=== PATIENT | female | born 1940 | race Two or more races ===

== ENCOUNTER 2017-05-18 23:44 | Emergency (ER) | payer MEDICARE, MEDICAID ==
[~2017-05-18] VITALS: Ht 157.5 cm; Wt 81.6 kg
[~2017-05-18 23:44] MED LIST: DICL75TA PO; HYDR25TA4 PO; METF500T4 PO; SAXA5TAB PO
[2017-05-19] MEDS: CLONIDINE HCL 0.1 MG TABLET PO ONE (00:51)
[2017-05-19] MEDS: OXYCODONE/APAP 5-325 MG TABLET PO ONE (00:52)
[2017-05-19] MEDS: ONDANSETRON ODT 4 MG TAB.RAPDIS SL ONE (00:52)
[2017-05-19] MEDS: ACETAMINOPHEN ES 500 MG TABLET PO ONE (00:52)
[2017-05-19] MEDS ORDERED: CLONIDINE HCL 0.1 MG TABLET ONE (01:01)
[2017-05-19] MEDS ORDERED: OXYCODONE/APAP 5-325 MG TABLET ONE (01:02)
[2017-05-19] MEDS ORDERED: ACETAMINOPHEN ES 500 MG TABLET ONE (01:02)
[2017-05-19] MEDS ORDERED: ONDANSETRON ODT 4 MG TAB.RAPDIS ONE (01:02)
--- NOTE | 2017-05-19 01:51 | NUR ---
Patient discharged to home in stable conditon. Written and verbal after care instructions given. Patient verbalizes understanding of instructions. Ambulated from ER with stable gait. All belongings with patient. Patient will be driven home by son in private vehicle. Patient aware not to drive or operate heavy machinery due to recent narcotic intake.
[2017-05-19 01:54] VITALS: BP 130/64
== END 2017-05-19 01:54 | disposition home or self-care (01) ==
LOC: ER 23:45
DX: R51 Headache (principal); I10 Essential (primary) hypertension; Z79.899 Other long term (current) drug therapy; E11.9 Type 2 diabetes mellitus without complications
CPT/HCPCS: 70450; A4663; Q0162

== ENCOUNTER 2019-06-26 22:12 | Inpatient (IN) | payer MEDICARE, MEDICAID ==
[~2019-06-26] VITALS: Ht 165.1 cm; Wt 82.2 kg
[~2019-06-26 22:12] MED LIST changes: +METF-440 PO; -METF500T4 PO
[2019-06-26] MEDS ORDERED: SAXA5TAB PO (22:46)
[2019-06-26] MEDS ORDERED: TIMO5SOL11 EACHEYE (22:46)
[2019-06-26] MEDS ORDERED: LATA2.5D7 EACHEYE (22:46)
[2019-06-26] MEDS ORDERED: TRAV5DRO EACHEYE (22:46)
[2019-06-26] MEDS ORDERED: HYDR25TA4 PO (22:46)
[2019-06-26] MEDS ORDERED: ONDANSETRON 4 MG/2 ML VIAL IV ONE (23:30)
[2019-06-26] MEDS ORDERED: IV NORMAL SALINE 1000 ML BAG IV ONE (23:30)
[2019-06-26] MEDS ORDERED: ONDANSETRON 4 MG/2 ML VIAL ONE (23:41)
[2019-06-26 23:52] LABS: BASOPHILS % (AUTO) 0.6 % (0.0-2.0); EOSINOPHILS % (AUTO) 0.8 % (0.0-7.0); HEMATOCRIT 37.1 % (31.2-41.9); HEMOGLOBIN 12.7 g/dL (10.9-14.3); LYMPHOCYTES # (AUTO) 2.6 K/uL (20.0-40.0); LYMPHOCYTES % (AUTO) 48.2 % (20.5-51.5); MEAN CORPUSCULAR HGB CONC 34 g/dL (32.3-35.6); MONOCYTES # (AUTO) 0.5 K/uL (2.0-10.0); MONOCYTES % (AUTO) 9.1 % (0.0-11.0); NEUTROPHILS # (AUTO) 2.2 K/uL (1.8-8.9); NEUTROPHILS % (AUTO) 41.3 % (38.5-71.5); PLATELET COUNT (AUTO) 216 K/uL (179-408); RED BLOOD CELL COUNT(AUTO) 4.37 MIL/uL (3.63-4.92); WHITE BLOOD COUNT (AUTO) 5.3 K/uL (3.8-11.8)
[2019-06-27 00:02] LABS: BILIRUBIN,DIRECT 0.1 mg/dL (0.0-0.2); BILIRUBIN,TOTAL 0.5 mg/dL (0.2-1.0); CREATININE 0.8 mg/dL (0.6-1.3); POTASSIUM 3.8 mmol/L (3.5-5.1); TOTAL PROTEIN, SERUM 8.1 g/dL (6.4-8.2)
[2019-06-27 00:09] LABS: THYROID STIMULATING HORMONE 3.867 mIU/mL (0.358-3.740)
[2019-06-27 00:11] LABS: *BILIRUBIN,URIN NEGATIVE (NEGATIVE); *BLOOD, URINE NEGATIVE (NEGATIVE); *CLARITY,URINE CLEAR (CLEAR); *KETONES,URINE NEGATIVE (NEGATIVE); *UROBILINOGEN,URINE 0.2 E.U./dl (NORMAL); LEUKOCYTE ESTERASE ,URINE NEGATIVE (NEGATIVE); NITRITE, URINE NEGATIVE (NEGATIVE); UGLUCOSE NEGATIVE (NEGATIVE)
[2019-06-27 00:14] LABS: *COLOR,URINE STRAW (YELLOW)
[2019-06-27] MEDS ORDERED: HYDROCODONE/APAP 5-325MG TABLET PO PRN (01:00)
[2019-06-27] MEDS ORDERED: ONDANSETRON 4 MG/2 ML VIAL IV PRN (01:00)
[2019-06-27] MEDS ORDERED: Z GUARD REMEDY PASTE 57 GM TUBE TOP PRN (01:00)
[2019-06-27] MEDS ORDERED: MAGNESIUM HYDROXIDE 30 ML LIQUID UDC PO PRN (01:00)
[2019-06-27] MEDS ORDERED: IV NS 1000 ML 1,000 ML IV PRN (01:00)
[2019-06-27] MEDS ORDERED: ACETAMINOPHEN 325 MG TABLET PO PRN (01:00)
[2019-06-27] MEDS ORDERED: ACETAMINOPHEN 325 MG TABLET PO ONE (01:15)
[2019-06-27 01:52] LABS: CREATININE 0.8 mg/dL (0.6-1.3); POTASSIUM 3.9 mmol/L (3.5-5.1)
[2019-06-27 01:56] LABS: MAGNESIUM 1.9 mg/dL (1.8-2.4)
[2019-06-27 02:07] LABS: BILIRUBIN,TOTAL 0.4 mg/dL (0.2-1.0); PHOSPHOROUS 3.2 mg/dL (2.5-4.9); TOTAL PROTEIN, SERUM 8.1 g/dL (6.4-8.2)
[2019-06-27 02:34] LABS: THYROID STIMULATING HORMONE 3.817 mIU/mL (0.358-3.740)
[2019-06-27 03:01] VITALS: BP 166/68
[2019-06-27 04:00] VITALS: BP 126/96
[2019-06-27] MEDS: PANTOPRAZOLE SODIUM 40 MG TABLET.DR PO SCH (06:21)
[2019-06-27 06:56] LABS: BASOPHILS % (AUTO) 0.7 % (0.0-2.0); EOSINOPHILS % (AUTO) 0.5 % (0.0-7.0); HEMATOCRIT 35.7 % (31.2-41.9); HEMOGLOBIN 12.1 g/dL (10.9-14.3); LYMPHOCYTES # (AUTO) 2.7 K/uL (20.0-40.0); MEAN CORPUSCULAR HGB CONC 34 g/dL (32.3-35.6); MEAN CORPUSCULAR VOLUME 85.8 fL (75.5-95.3); MONOCYTES # (AUTO) 0.5 K/uL (2.0-10.0); MONOCYTES % (AUTO) 7.9 % (0.0-11.0); NEUTROPHILS # (AUTO) 3.3 K/uL (1.8-8.9); NEUTROPHILS % (AUTO) 49.9 % (38.5-71.5); PLATELET COUNT (AUTO) 206 K/uL (179-408); RED BLOOD CELL COUNT(AUTO) 4.16 MIL/uL (3.63-4.92); WHITE BLOOD COUNT (AUTO) 6.6 K/uL (3.8-11.8)
[2019-06-27] MEDS: TIMOLOL MALEATE XE 0.5% OPHT 5 ML BOTTLE EACHEYE SCH (08:45)
[2019-06-27] MEDS ORDERED: SAXAGLIPTIN HYDROCHLORIDE PO SCH (09:00)
[2019-06-27] MEDS ORDERED: DICLOFENAC 75 MG TABLET.DR PO SCH (09:00)
[2019-06-27] MEDS ORDERED: METFORMIN HCL 500 MG TABLET PO SCH (10:55)
[2019-06-27 11:19] VITALS: BP 150/62
[2019-06-27] MEDS ORDERED: SWABABLE VALVE TRANSFER SET EA MC ONE (13:36)
[2019-06-27] MEDS ORDERED: IOHEXOL 350 100 ML INFUS..BTL ONE (13:37)
[2019-06-27] MEDS ORDERED: IV NORMAL SALINE 250 ML IV ONE (13:37)
[2019-06-27 16:07] VITALS: BP 108/57
[2019-06-27] MEDS: ONGLYZA 5 MG PO SCH (17:10)
[2019-06-27 20:19] VITALS: BP 134/56
[2019-06-27] MEDS: LATANOPROST OPHT DROP 2.5 ML BOTTLE EACHEYE SCH (20:58)
[2019-06-27] MEDS: IV NS 1000 ML 1,000 ML IV PRN (21:01)
[2019-06-28 00:25] VITALS: BP 134/60
[2019-06-28 04:00] VITALS: BP 123/49
[2019-06-28 06:03] LABS: BASOPHILS % (AUTO) 0.6 % (0.0-2.0); EOSINOPHILS # (AUTO) 0.1 K/uL (0.0-0.7); EOSINOPHILS % (AUTO) 1.1 % (0.0-7.0); HEMATOCRIT 33.6 % (31.2-41.9); HEMOGLOBIN 11.6 g/dL (10.9-14.3); LYMPHOCYTES # (AUTO) 3.1 K/uL (20.0-40.0); LYMPHOCYTES % (AUTO) 51.9 % (20.5-51.5); MEAN CORPUSCULAR HGB CONC 35 g/dL (32.3-35.6); MEAN CORPUSCULAR VOLUME 86.9 fL (75.5-95.3); MONOCYTES # (AUTO) 0.5 K/uL (2.0-10.0); MONOCYTES % (AUTO) 8.8 % (0.0-11.0); NEUTROPHILS # (AUTO) 2.2 K/uL (1.8-8.9); NEUTROPHILS % (AUTO) 37.6 % (38.5-71.5); PLATELET COUNT (AUTO) 198 K/uL (179-408); RED BLOOD CELL COUNT(AUTO) 3.86 MIL/uL (3.63-4.92); WHITE BLOOD COUNT (AUTO) 5.9 K/uL (3.8-11.8)
[2019-06-28] MEDS: PANTOPRAZOLE SODIUM 40 MG TABLET.DR PO SCH (06:05)
[2019-06-28 06:17] LABS: CARBON DIOXIDE 29 mmol/L (21-32); CHLORIDE 105 mmol/L (98-107); CREATININE 0.9 mg/dL (0.6-1.3); GLUCOSE 83 mg/dL (74-106); UREA NITROGEN, BLOOD 11 mg/dL (7-18)
[2019-06-28] MEDS: ONGLYZA 5 MG PO SCH (08:31)
[2019-06-28] MEDS: TIMOLOL MALEATE XE 0.5% OPHT 5 ML BOTTLE EACHEYE SCH (08:32)
[2019-06-28] MEDS: IV NS 1000 ML 1,000 ML IV PRN (10:41)
[2019-06-28 11:30] VITALS: BP 132/59
[2019-06-28 15:07] VITALS: BP 154/60
[2019-06-28] MEDS: LATANOPROST OPHT DROP 2.5 ML BOTTLE EACHEYE SCH (20:35)
[2019-06-28 20:43] VITALS: BP 161/70
[2019-06-28] MEDS ORDERED: ATORVASTATIN 40 MG TABLET PO SCH (21:00)
[2019-06-29] MEDS: PANTOPRAZOLE SODIUM 40 MG TABLET.DR PO SCH (06:02)
[2019-06-29 06:11] VITALS: BP 148/54
[2019-06-29 06:36] LABS: BASOPHILS % (AUTO) 0.6 % (0.0-2.0); EOSINOPHILS # (AUTO) 0.1 K/uL (0.0-0.7); EOSINOPHILS % (AUTO) 1.6 % (0.0-7.0); HEMATOCRIT 35.2 % (31.2-41.9); HEMOGLOBIN 11.5 g/dL (10.9-14.3); MEAN CORPUSCULAR HEMOGLOBIN 28.3 uug (24.7-32.8); MEAN CORPUSCULAR HGB CONC 33 g/dL (32.3-35.6); MEAN CORPUSCULAR VOLUME 86.6 fL (75.5-95.3); MONOCYTES # (AUTO) 0.5 K/uL (2.0-10.0); MONOCYTES % (AUTO) 7.8 % (0.0-11.0); NEUTROPHILS # (AUTO) 2.5 K/uL (1.8-8.9); PLATELET COUNT (AUTO) 206 K/uL (179-408); RED BLOOD CELL COUNT(AUTO) 4.07 MIL/uL (3.63-4.92); WHITE BLOOD COUNT (AUTO) 6.2 K/uL (3.8-11.8)
[2019-06-29 06:42] LABS: CREATININE 0.9 mg/dL (0.6-1.3); POTASSIUM 3.8 mmol/L (3.5-5.1)
[2019-06-29] MEDS: ONGLYZA 5 MG PO SCH (08:44)
[2019-06-29] MEDS ORDERED: ASPIRIN 81 MG TAB.CHEW PO SCH (09:00)
[2019-06-29] MEDS ORDERED: LOSARTAN POTASSIUM 25 MG TABLET PO SCH (09:00)
[2019-06-29] MEDS ORDERED: ASPIRIN 325 MG TABLET PO SCH (09:00)
[2019-06-29] MEDS: TIMOLOL MALEATE XE 0.5% OPHT 5 ML BOTTLE EACHEYE SCH (09:30)
[2019-06-29] MEDS ORDERED: ATOR40TA PO (10:26)
[2019-06-29] MEDS ORDERED: ASPI81TA31 PO (10:26)
[2019-06-29] MEDS ORDERED: LOSA25TA3 PO (10:26)
[2019-06-29 11:24] VITALS: BP 153/62
[2019-06-29] MEDS ORDERED: METFORMIN HCL 500 MG TABLET PO SCH (18:00)
[2019-06-29] MEDS ORDERED: ATORVASTATIN 40 MG TABLET PO SCH (21:00)
== END 2019-06-29 12:15 | disposition home or self-care (01) | DRG 641 ==
LOC: ER 22:18 → TELE3 06-27 00:25 → MEDSURG3 06-28 16:57
PROVIDERS: ADMIT Registered Nurse; ATTEND Nurse Practitioner Acute Care
DX: E86.0 Dehydration (principal); E87.1 Hypo-osmolality and hyponatremia; T50.2X5A Adverse effect of carbonic-anhydrase inhibitors, benzothiadiazides and other diuretics, initial encounter; Y92.039 Unspecified place in apartment as the place of occurrence of the external cause; I11.9 Hypertensive heart disease without heart failure; I65.23 Occlusion and stenosis of bilateral carotid arteries; R40.2362 Coma scale, best motor response, obeys commands, at arrival to emergency department; R40.2142 Coma scale, eyes open, spontaneous, at arrival to emergency department; R40.2252 Coma scale, best verbal response, oriented, at arrival to emergency department; E78.5 Hyperlipidemia, unspecified; E03.9 Hypothyroidism, unspecified; Z79.84 Long term (current) use of oral hypoglycemic drugs; H40.9 Unspecified glaucoma; R42 Dizziness and giddiness; E11.9 Type 2 diabetes mellitus without complications; Z79.899 Other long term (current) drug therapy
CPT/HCPCS: 36415; 70030-TC; 70450; 70496; 71045; 83605; 83735; 84100; 84443; 85025; 85730; 87040; 87086; 93005; 93307; 93880; A4663; G0378; J2405; J3590; J7030; J7050; Q9967

== ENCOUNTER 2021-05-07 23:49 | Inpatient (IN) | payer MEDICARE, OTHER ==
[~2021-05-07] VITALS: Ht 165.1 cm; Wt 83.5 kg
[~2021-05-07 23:49] MED LIST changes: +ASPI81TA31 PO; +ATOR40TA PO; -DICL75TA PO; -HYDR25TA4 PO; +LATA2.5D15 EACHEYE; +LOSA25TA3 PO; +TIMO5SOL11 EACHEYE
--- NOTE | 2021-05-07 23:55 | NUR ---
DR MARTIN AT BEDSIDE FOR MSE.
[2021-05-08] MEDS ORDERED: IV NORMAL SALINE 1000 ML BAG IV ONE
[2021-05-08 00:21] LABS: HEMATOCRIT 30.1 % (31.2-41.9); MEAN CORPUSCULAR HEMOGLOBIN 26.4 uug (24.7-32.8); MEAN CORPUSCULAR VOLUME 81.8 fL (75.5-95.3); PLATELET COUNT (AUTO) 166 K/uL (179-408)
[2021-05-08 00:41] LABS: ALANINE AMINOTRANSFERASE 21 U/L (14-59); ALKALINE PHOSPHATASE 87 U/L (50-136); ASPARTATE AMINOTRANSFERASE 37 U/L (15-37); BILIRUBIN,DIRECT 0.2 mg/dL (0.0-0.2); BILIRUBIN,TOTAL 0.3 mg/dL (0.2-1.0); CARBON DIOXIDE 27 mmol/L (21-32); CHLORIDE 93 mmol/L (98-107); CREATININE 1.4 mg/dL (0.6-1.3); GLUCOSE 247 mg/dL (74-106); LIPASE 141 U/L (73-393); POTASSIUM 4.6 mmol/L (3.5-5.1); TOTAL PROTEIN, SERUM 7.1 g/dL (6.4-8.2); UREA NITROGEN, BLOOD 23 mg/dL (7-18)
[2021-05-08 00:43] LABS: *BILIRUBIN,URIN NEGATIVE (NEGATIVE); *BLOOD, URINE TRACE (NEGATIVE); *CLARITY,URINE CLEAR (CLEAR); *COLOR,URINE YELLOW (YELLOW); *KETONES,URINE TRACE (NEGATIVE); *UROBILINOGEN,URINE 0.2 E.U./dl (NORMAL); LEUKOCYTE ESTERASE ,URINE NEGATIVE (NEGATIVE); NITRITE, URINE NEGATIVE (NEGATIVE); PH,URINE 5.5 (5.0-8.0); UGLUCOSE TRACE (NEGATIVE)
[2021-05-08 00:44] LABS: BACTERIA,URINE NONE SEEN /HPF (NONE SEEN); RBC,URINE 0-3 /HPF (0-3); WBC,URINE 0-3 /HPF (0-3)
[2021-05-08 00:45] LABS: SQUAMOUS EPITHELIAL CELL,UR FEW /HPF (NONE SEEN)
--- NOTE | 2021-05-08 00:52 | NUR ---
Pt back from CT in stable condition, VS re-assessed and recorded. RN chaperoned Dr. Morlaes in rectal exam, tolerated well. Hemocult showed positive result. Pt resting in bed, with no signs of distress.
[2021-05-08] MEDS ORDERED: LOSA25TA27 PO (01:10)
[2021-05-08] MEDS ORDERED: HYDR25TA4 PO (01:10)
--- NOTE | 2021-05-08 03:34 | NUR ---
Patient pending admission. Pending COVID results prior to contacting hospitalist. Pt stable condition, no signs of distress.
--- NOTE | 2021-05-08 03:49 | NUR ---
Pt will be going to Room 317/Joe RN will be assigned. Pending COVID results and admission panel call.
[2021-05-08] MEDS ORDERED: DEXAMETHASONE SOD PHOSPHATE 4 MG INJ IV ONE (04:00)
--- NOTE | 2021-05-08 04:03 | NUR ---
Paged EPIC. Owen Pandey Np will call back.
--- NOTE | 2021-05-08 04:10 | NUR ---
Dr. Morales on panel call with Owen Pandey NP.
--- NOTE | 2021-05-08 04:14 | NUR ---
Owen Pandey accepted patient for admission. Tele/ Adm Dx: Lower GI Bleed/COVID 19 Pneumonia. All belongings noted and accounted for. Family at bedside notified.
--- NOTE | 2021-05-08 04:16 | NUR ---
First call to give report.
[2021-05-08] MEDS ORDERED: DEXAMETHASONE SOD PHOSPHATE 10 MG INJ ONE (04:19)
--- NOTE | 2021-05-08 04:23 | NUR ---
Report given to Joe KAMARA.
[2021-05-08 04:30] VITALS: BP 134/56
[2021-05-08] MEDS ORDERED: ACETAMINOPHEN 650 MG SUPP.RECT RC PRN (04:30)
[2021-05-08] MEDS ORDERED: MORPHINE SULFATE 2 MG/1 ML DISP.SYRIN IV PRN (04:30)
[2021-05-08] MEDS ORDERED: DEXTROSE 50% 50 ML DISP.SYRIN IV PRN ×3 (04:30→20:45)
[2021-05-08] MEDS ORDERED: INSULIN REGULAR, HUMAN 300 UNIT/3 ML VIAL SQ PRN (04:30)
[2021-05-08] MEDS ORDERED: ONDANSETRON 4 MG/2 ML VIAL IV PRN (04:30)
--- NOTE | 2021-05-08 04:45 | NUR ---
Pt admitted to Tele floor, warm handoff to Joe KAMARA. Pt transferred in stable condition.
[2021-05-08] MEDS ORDERED: CEFTRIAXONE 1 G VIAL ONE (04:58)
[2021-05-08] MEDS ORDERED: AZITHROMYCIN 500 MG VIAL IV ONE (04:58)
[2021-05-08] MEDS: AZITHROMYCIN IV 500 MG in IV DEXTROSE 5% 250 ML IV SCH (05:22)
[2021-05-08] MEDS: CEFTRIAXONE 1 G in IV DEXTROSE 5% 50 ML IV SCH (05:22)
[2021-05-08] MEDS: IV NS 1000 ML 1,000 ML IV PRN (05:52)
[2021-05-08] MEDS: BLOOD SUGAR DIAGNOSTIC 1 EACH STRIP VI SCH ×5 (06:11→21:00)
[2021-05-08] MEDS: INSULIN REGULAR, HUMAN 300 UNIT/3 ML VIAL SQ PRN ×3 (06:12→21:13)
--- NOTE | 2021-05-08 07:23 | NUR ---
Received awake and ambulating to the bathroom. In no acute distress. No s/sx of pain or discomfort. 100% on room air. No sob. Safety and fall measures in place. Call light in reach and encouraged. Will continue to monitor.
--- NOTE | 2021-05-08 07:25 | NUR ---
Admitted to room 322; pt placed on isolation; orders carried out; tolerated rocephin and zithromax; kept NPO; no bleeding observed; continue plan of care
[2021-05-08] MEDS ORDERED: BLOOD SUGAR DIAGNOSTIC 1 EACH STRIP VI SCH (07:30)
[2021-05-08] MEDS: TIMOLOL MALEATE XE 0.5% OPHT 5 ML BOTTLE EACHEYE SCH (08:40)
[2021-05-08] MEDS: PANTOPRAZOLE SODIUM 40 MG VIAL IV SCH ×2 (08:40→20:49)
[2021-05-08 10:05] LABS: POTASSIUM 4.9 mmol/L (3.5-5.1)
[2021-05-08 10:11] LABS: BILIRUBIN,TOTAL 0.3 mg/dL (0.2-1.0); TOTAL PROTEIN, SERUM 5.9 g/dL (6.4-8.2)
[2021-05-08 10:20] LABS: THYROID STIMULATING HORMONE 0.974 mIU/mL (0.358-3.740)
[2021-05-08 10:49] LABS: *BILIRUBIN,URIN NEGATIVE (NEGATIVE); *BLOOD, URINE 1+ (NEGATIVE); *CLARITY,URINE CLEAR (CLEAR); *COLOR,URINE YELLOW (YELLOW); *KETONES,URINE 1+ (NEGATIVE); *UROBILINOGEN,URINE 0.2 E.U./dl (NORMAL); LEUKOCYTE ESTERASE ,URINE NEGATIVE (NEGATIVE); NITRITE, URINE NEGATIVE (NEGATIVE); UGLUCOSE 2+ (NEGATIVE)
[2021-05-08 10:51] LABS: *CREATININE,URINE 71.6 mg/dL (30-125); *URINE TOTAL PROTEIN RANDOM 50.5 mg/dL (<150/24HR)
[2021-05-08 11:39] VITALS: BP 153/50
[2021-05-08 14:08] LABS: BACTERIA,URINE NONE SEEN /HPF (NONE SEEN); SQUAMOUS EPITHELIAL CELL,UR FEW /HPF (NONE SEEN)
[2021-05-08 16:00] VITALS: BP 125/47
--- NOTE | 2021-05-08 16:12 | NUR ---
Dr. Allen ordered to start patient on full liquid diet noted and carried out. Patient made aware.
--- NOTE | 2021-05-08 17:00 | NUR ---
Spoke with son Pipe and given update. He was appreciative.
--- NOTE | 2021-05-08 18:56 | NUR ---
Patient in bed awake, alert and oriented x4. No respiratory distress. Denies pain. Iv hydration ongoing tolerated. Ambulatory with brp. Safety and fall measures maintained. Kept comfortable.
[2021-05-08 20:00] VITALS: BP 139/61
[2021-05-08] MEDS: LATANOPROST OPHT DROP 2.5 ML BOTTLE EACHEYE SCH (20:50)
--- NOTE | 2021-05-08 21:21 | NUR ---
Patient awake and alert. Denies pain/sob/distress. BG check 374. Dr. Allen at bedside and is aware, cover with sliding scale only.
--- NOTE | 2021-05-08 21:21 | NUR ---
Belongings provided by family. 3 pieces of clothing and 1 mug
[2021-05-09] VITALS (10 sets, daily range): BP systolic 99–181; BP diastolic 45–65
[2021-05-09] MEDS: CEFTRIAXONE 1 G in IV DEXTROSE 5% 50 ML IV SCH (05:08)
[2021-05-09] MEDS: AZITHROMYCIN IV 500 MG in IV DEXTROSE 5% 250 ML IV SCH (05:25)
[2021-05-09] MEDS: IV NS 1000 ML 1,000 ML IV PRN (05:25)
--- NOTE | 2021-05-09 06:04 | NUR ---
Patient awake alert and pleasant. Denies pain. No SOB overnight. VS WNL. RA. Independent in repositioning. SR on monitor. Safety measures enforced. COVID precautions maintained. PCR send out collected per MD orders. No acute events occurred overnight.
[2021-05-09] MEDS: BLOOD SUGAR DIAGNOSTIC 1 EACH STRIP VI SCH ×5 (06:53→21:17)
--- NOTE | 2021-05-09 07:30 | NUR ---
NURSE REPORT Report obtained from avani nurse Linden and this nurse assume care of patient.
[2021-05-09] MEDS: PANTOPRAZOLE SODIUM 40 MG VIAL IV SCH ×2 (08:16→21:36)
[2021-05-09] MEDS: LOSARTAN POTASSIUM 25 MG TABLET PO SCH (08:17)
--- NOTE | 2021-05-09 08:30 | NUR ---
NURSE CARE BP 99/52. BP meds Cozaar held. MD aware of Hgb 6.8. No sxs of dizziness or chest pain. Another MD wanted to dc the tele, and this nurse told Dr Ohara that Hgb was 6.2 and another one was being done.
[2021-05-09] MEDS: TIMOLOL MALEATE XE 0.5% OPHT 5 ML BOTTLE EACHEYE SCH (08:56)
[2021-05-09] MEDS ORDERED: DEXAMETHASONE SOD PHOSPHATE 4 MG INJ IV SCH (09:00)
[2021-05-09] MEDS: INSULIN REGULAR, HUMAN 300 UNIT/3 ML VIAL SQ PRN ×4 (09:01→21:32)
[2021-05-09 09:16] LABS: MEAN CORPUSCULAR HEMOGLOBIN 26.9 uug (24.7-32.8); MEAN CORPUSCULAR VOLUME 83.3 fL (75.5-95.3); PLATELET COUNT (AUTO) 184 K/uL (179-408)
[2021-05-09 09:56] LABS: BILIRUBIN,TOTAL 0.2 mg/dL (0.2-1.0); CREATININE 1.3 mg/dL (0.6-1.3); MAGNESIUM 2.3 mg/dL (1.8-2.4); PHOSPHOROUS 3.3 mg/dL (2.5-4.9); POTASSIUM 4.9 mmol/L (3.5-5.1); TOTAL PROTEIN, SERUM 6.3 g/dL (6.4-8.2); URIC ACID 4.1 mg/dL (2.6-6.0)
--- NOTE | 2021-05-09 10:00 | NUR ---
NURSE CARE MD- Dr Ohara ordered 1 unit of blood for Hgb of 6.8. Will transfuse 1 unit when blood is ready.
[2021-05-09] MEDS ORDERED: IV NORMAL SALINE 500 ML IV ONE (11:45)
--- NOTE | 2021-05-09 11:50 | NUR ---
Late entry for 05/08/21: No Morphine was given to the patient.
--- NOTE | 2021-05-09 12:00 | NUR ---
NURSE CARE BG before lunch 289 and given 6 units Regular Insulin.
--- NOTE | 2021-05-09 14:00 | NUR ---
NURSE NOTES Waiting for the midline to be inserted. IV in left wrist and left upper arm swollen. Charge nurse César was notified and she ordered midline
[2021-05-09 16:53] LABS: BAND % (MANUAL) 2 % (0-10); NEUTROPHILS % (MANUAL) 70 % (42-75)
[2021-05-09 16:54] LABS: LYMPHOCYTES % (MANUAL) 15 % (20-40); MONOCYTES % (MANUAL) 13 % (2-10)
--- NOTE | 2021-05-09 18:00 | NUR ---
NURSE NOTES BG before dinner- 285. Given 6 units. Son stating that why is his mom getting liquid that have high sugar Addendum: 05/09/21 at 2010 by [facility]ISTRY [facility] RN4 RN since she is a diabetic.
--- NOTE | 2021-05-09 19:25 | NUR ---
NURSE REPORT Report given to avani Loja to assume care of patient. Patient had midline placed in but this nurse had 2 discharges and 1 admission. Lab was called by this nurse and the person who was answered the phone stated she don't have the qualifications to check if blood is ready and she needs to call in someone to take care of the blood product. Vick Loja to give 1 unit of PRBC and needs consent signed. Vanna Brady
[2021-05-09] MEDS: LATANOPROST OPHT DROP 2.5 ML BOTTLE EACHEYE SCH (21:16)
--- NOTE | 2021-05-09 21:45 | NUR ---
PATIENT ALERT ORIENTED, NO SOB NO CHEST PAIN, ON BLOOD TRANSFUSION, NO ADVERSE REACTION NOTED AT THIS TIME, TOLERATE WELL, CONT TO MONITOR.
--- NOTE | 2021-05-09 22:27 | NUR ---
Notify Dr Hdz that patient has elevated bp 167/70, 165/78, and slight elevated temp 99. 2. Notify Dr hdz that patient is have blood transfusion of 1 unit PRBC, with order of benadryl one time order.
[2021-05-09] MEDS ORDERED: diphenhydrAMINE 50 MG/1 ML VIAL IV ONE (22:30)
[2021-05-09] MEDS: hydrALAZINE HCL 20 MG/1 ML VIAL IV PRN (22:40)
[2021-05-10] VITALS (8 sets, daily range): BP systolic 145–193; BP diastolic 47–80
--- NOTE | 2021-05-10 00:50 | NUR ---
PATIENT ALERT ORIENTED, NO SOB NO CHEST PAIN, TELE MONITOR SINUS RHTYTHM, TRANSFUSED 1 UNIT PRBC, TOLERATE WELL, NO S/S OF ADVERSE REACTION NOTED. PATIENT TEMP 99 ORALLY, ON IV ABX FOR COVID, NO S/S OF DISTRESS. CONT TO MONITOR.
[2021-05-10] MEDS: CEFTRIAXONE 1 G in IV DEXTROSE 5% 50 ML IV SCH (04:03)
[2021-05-10] MEDS: AZITHROMYCIN IV 500 MG in IV DEXTROSE 5% 250 ML IV SCH (04:37)
[2021-05-10] MEDS: BLOOD SUGAR DIAGNOSTIC 1 EACH STRIP VI SCH ×4 (06:26→21:10)
--- NOTE | 2021-05-10 06:28 | NUR ---
Patient awake no sob no chest pain. r upper arm midline was patent and working all night, then phelebotomist notify staff that the dressing on midline was peeling, reinforce dressing applied. Patient midline patent, but with swelling noted, and pain to touch, IV stop at this time, will notifiy midline staff to check or to correct the midline, patient remind on droplet precaution, on room air, cont to monitor.
[2021-05-10 06:43] LABS: HEMATOCRIT 24.1 % (31.2-41.9); MEAN CORPUSCULAR HEMOGLOBIN 26.5 uug (24.7-32.8); PLATELET COUNT (AUTO) 188 K/uL (179-408)
[2021-05-10 06:55] LABS: MAGNESIUM 2.2 mg/dL (1.8-2.4); PHOSPHOROUS 2.8 mg/dL (2.5-4.9); POTASSIUM 4.3 mmol/L (3.5-5.1)
--- NOTE | 2021-05-10 08:00 | NUR ---
RESTING COMFORTABLY IN BED NO SS OF PAIN OR DISTRESS. NOTED BLOOD FROM STOOL AWAITING GI CONSULT
[2021-05-10] MEDS ORDERED: CLONIDINE HCL 0.1 MG TABLET PO PRN (08:15)
[2021-05-10] MEDS: PANTOPRAZOLE SODIUM 40 MG VIAL IV SCH ×2 (08:35→21:00)
[2021-05-10] MEDS: LOSARTAN POTASSIUM 25 MG TABLET PO SCH (08:36)
[2021-05-10] MEDS: INSULIN REGULAR, HUMAN 300 UNIT/3 ML VIAL SQ PRN ×3 (08:40→21:25)
[2021-05-10] MEDS ORDERED: LOSARTAN POTASSIUM 25 MG TABLET PO ONE (08:45)
[2021-05-10] MEDS ORDERED: LOSARTAN POTASSIUM 25 MG TABLET PO SCH (09:00)
[2021-05-10] MEDS: TIMOLOL MALEATE XE 0.5% OPHT 5 ML BOTTLE EACHEYE SCH (11:50)
--- NOTE | 2021-05-10 12:00 | NUR ---
NO ACUTE CHANGE FROM BASELINE ASSESSMENT
[2021-05-10 14:06] LABS: A/G RATIO 0.9 (0.7-1.7); ALBUMIN 2.7 g/dL (2.9-4.4); ALPHA-1-GLOBULIN 0.3 g/dL (0.0-0.4); ALPHA-2-GLOBULIN 0.6 g/dL (0.4-1.0); BETA GLOBULIN 0.8 g/dL (0.7-1.3); GAMMA GLOBULIN 1.2 g/dL (0.4-1.8); GLOBULIN, TOTAL 2.9 g/dL (2.2-3.9); M-SPIKE Not Observed g/dL (Not Observed)
--- NOTE | 2021-05-10 16:11 | NUR ---
O2 AT 2L NC RESTARTED. PATIENT WAS SATURATING 88% ON RA
--- NOTE | 2021-05-10 16:40 | NUR ---
DR YARBROUGH NOTIFIED OF GI FOLLOW-UP AND SAID HE IS AWARE AND WILL FOLLOW-UP PATIENT SOON HE CAN
[2021-05-10] MEDS: hydrALAZINE HCL 20 MG/1 ML VIAL IV PRN (17:00)
[2021-05-10] MEDS ORDERED: ACETAMINOPHEN 325 MG TABLET PO PRN (20:45)
[2021-05-10] MEDS: LATANOPROST OPHT DROP 2.5 ML BOTTLE EACHEYE SCH (21:00)
[2021-05-11 00:20] VITALS: BP 145/52
--- NOTE | 2021-05-11 01:26 | NUR ---
Received pt resting bed, no acute distress noted. Denies and pain/ discomfort. Temp 99.9 administered Tylenol, effective 98.3. BP 161/ 58 rechecked q1h, 138/52. All due medications administered and tolerated well. No SOB noted on RA saturating 90-92% on 2L saturating 95-96%. Needs attended too. Safety measures and droplet precautions maintained. Will continue plan of care.
[2021-05-11 04:17] VITALS: BP 147/74
[2021-05-11 06:22] LABS: HEMATOCRIT 23.3 % (31.2-41.9); MEAN CORPUSCULAR VOLUME 82.1 fL (75.5-95.3); PLATELET COUNT (AUTO) 221 K/uL (179-408)
[2021-05-11] MEDS: BLOOD SUGAR DIAGNOSTIC 1 EACH STRIP VI SCH (06:34)
[2021-05-11 07:06] LABS: CREATININE 1.1 mg/dL (0.6-1.3); MAGNESIUM 2.2 mg/dL (1.8-2.4); PHOSPHOROUS 3.3 mg/dL (2.5-4.9); POTASSIUM 4.6 mmol/L (3.5-5.1)
[2021-05-11] MEDS ORDERED: FUROSEMIDE 20 MG/2 ML VIAL IV ONE (08:30)
[2021-05-11] MEDS ORDERED: LOSARTAN POTASSIUM 50 MG TABLET PO SCH (09:00)
[2021-05-11] MEDS: INSULIN REGULAR, HUMAN 300 UNIT/3 ML VIAL SQ PRN (09:21)
[2021-05-11] MEDS: PANTOPRAZOLE SODIUM 40 MG VIAL IV SCH (09:22)
[2021-05-11 09:32] VITALS: BP 147/75
--- NOTE | 2021-05-11 09:38 | NUR ---
Spoke with patients daughter and patient herself. Patient wants to leave hospital Against Medical Advice. Both daughter and patient were made aware of risks and have decided to still leave AMA. Edmundo MCCLOUD was in unit to overhear conversation and signed AMA form.
[2021-05-11] MEDS: TIMOLOL MALEATE XE 0.5% OPHT 5 ML BOTTLE EACHEYE SCH (10:35)
--- NOTE | 2021-05-11 10:37 | NUR ---
Spoke with patients son Pipe. He is also aware of the risks of an AMA. He agrees and will be picking his mother up.
[2021-05-11] MEDS ORDERED: LOSA25TA27 PO (11:17)
--- NOTE | 2021-05-11 11:17 | NUR ---
Patient discharged home in stable condition. Vital signs at time of discharge: BP 138/60 -- HR: 92 -- O2 (Room Air): 96% -- Temp: 98.3 1100 Blood Sugar = 301 but patient refused to have insulin coverage. Stating she doesn't need it. All belongings with patient. Son picked up patient. Addendum: 05/11/21 at 1123 by PRASAD ADAMS RN Patient left AMA.
== END 2021-05-11 11:00 | disposition left against medical advice (07) | DRG 177 ==
LOC: ER 23:49 → TELE3 05-08 04:12
PROVIDERS: ADMIT Nurse Practitioner Family; ATTEND Internal Medicine
PROC: 30233N1 Transfusion of Nonautologous Red Blood Cells into Peripheral Vein, Percutaneous Approach (ICD-10-PCS; principal; 2021-05-09)
PROC: 05HB33Z Insertion of Infusion Device into Right Basilic Vein, Percutaneous Approach (ICD-10-PCS; 2021-05-09)
DX: U07.1 COVID-19 (principal); J12.82 Pneumonia due to coronavirus disease 2019; K57.31 Diverticulosis of large intestine without perforation or abscess with bleeding; I50.33 Acute on chronic diastolic (congestive) heart failure; D62 Acute posthemorrhagic anemia; I31.3 Pericardial effusion (noninflammatory); E87.1 Hypo-osmolality and hyponatremia; N17.9 Acute kidney failure, unspecified; E11.65 Type 2 diabetes mellitus with hyperglycemia; E78.5 Hyperlipidemia, unspecified; E11.51 Type 2 diabetes mellitus with diabetic peripheral angiopathy without gangrene; E66.9 Obesity, unspecified; Z68.30 Body mass index [BMI] 30.0-30.9, adult; J45.909 Unspecified asthma, uncomplicated; I11.0 Hypertensive heart disease with heart failure; I25.10 Atherosclerotic heart disease of native coronary artery without angina pectoris; H40.9 Unspecified glaucoma; T50.2X5A Adverse effect of carbonic-anhydrase inhibitors, benzothiadiazides and other diuretics, initial encounter; Y92.89 Other specified places as the place of occurrence of the external cause; I45.9 Conduction disorder, unspecified; E86.0 Dehydration; I65.23 Occlusion and stenosis of bilateral carotid arteries; M19.90 Unspecified osteoarthritis, unspecified site; Z79.84 Long term (current) use of oral hypoglycemic drugs; Z98.41 Cataract extraction status, right eye; R09.02 Hypoxemia
CPT/HCPCS: 36415; 70030-TC; 71045; 82378; 83550; 83615; 83690; 83735; 83935; 83970; 84100; 84155; 84156; 84165; 84300; 84443; 84550; 85025; 86140; 86850; 86900; 86901; 86920; 87086; 93005; C9113; G0378; J0360; J0456; J0696; J1100; J1200; J1815; J1940; J2270; J3590; J7030; J7040; J7050; J7060; P9016; P9021; U0003

== ENCOUNTER 2021-05-11 18:00 | Inpatient (IN) | payer MEDICARE, OTHER ==
[~2021-05-11] VITALS: Ht 165.1 cm; Wt 81.6 kg
[~2021-05-11 18:00] MED LIST changes: +LOSA25TA27 PO; -LOSA25TA3 PO; -METF-440 PO
[2021-05-11 19:07] LABS: ABG BASE EXCESS 2.1 mmol/L; ABG HCO3 24.8 mmol/L; ABG PCO2 30.9 mmHg (35.0-45.0); ABG PH 7.522 (7.350-7.450); ABG PO2 88.3 mmHg (75.0-100.0); ABG SITE RIGHT RADIAL; ABG TOTAL HEMOGLOBIN 8.3 G/dL (12.0-16.0); COHb 0.8 % (0.5-1.5); MetHb 0.1 % (0.0-1.5); O2Hb 96.2 % (94.0-97.0)
[2021-05-11 19:09] LABS: HEMATOCRIT 24.1 % (31.2-41.9); MEAN CORPUSCULAR HEMOGLOBIN 27.1 uug (24.7-32.8); MEAN CORPUSCULAR VOLUME 82.8 fL (75.5-95.3); PLATELET COUNT (AUTO) 252 K/uL (179-408)
--- NOTE | 2021-05-11 19:15 | NUR ---
Report given by edgar. Pt. was admitted inpatient here today for GI bleed and covid pneumonia. Pt. left AMA. Minetto faint and sob when she returned home, was bib ra. O2 sat in 70's on RA. on 100% nonrebreather 1L, o2 sats are 95. Pt. is currently stable, not in distress. Pts. son is at bedside to translate.
--- NOTE | 2021-05-11 19:19 | NUR ---
Patient is still for EKG, saline lock & rapid flu swab and admission to [facility], endorsed to ASAD Luna accordingly.
[2021-05-11 19:24] LABS: CARBON DIOXIDE 27 mmol/L (21-32); CHLORIDE 99 mmol/L (98-107); CREATINE KINASE, TOTAL 189 U/L (26-192); CREATININE 1.4 mg/dL (0.6-1.3); POTASSIUM 3.9 mmol/L (3.5-5.1); UREA NITROGEN, BLOOD 19 mg/dL (7-18)
[2021-05-11 19:26] LABS: GLUCOSE 405 mg/dL (74-106)
[2021-05-11 19:34] LABS: ALANINE AMINOTRANSFERASE 37 U/L (14-59); ALKALINE PHOSPHATASE 77 U/L (50-136); ASPARTATE AMINOTRANSFERASE 60 U/L (15-37); BILIRUBIN,TOTAL 0.6 mg/dL (0.2-1.0); FERRITIN 493 ng/mL (8-252); LACTATE DEHYDROGENASE 731 U/L (81-234); TOTAL PROTEIN, SERUM 6.5 g/dL (6.4-8.2)
--- NOTE | 2021-05-11 21:19 | NUR ---
Gave report to ASAD Diaz.
[2021-05-11 23:20] VITALS: BP 177/61
[2021-05-11] MEDS ORDERED: Z GUARD REMEDY PASTE 57 GM TUBE TOP PRN (23:30)
[2021-05-11] MEDS ORDERED: ZOLPIDEM 5 MG TABLET PO PRN (23:30)
[2021-05-11] MEDS ORDERED: MAGNESIUM HYDROXIDE 30 ML LIQUID UDC PO PRN (23:30)
[2021-05-11] MEDS ORDERED: CEFTRIAXONE 1 G in IV DEXTROSE 5% 50 ML IV SCH (23:30)
[2021-05-11] MEDS ORDERED: ACETAMINOPHEN 325 MG TABLET PO PRN (23:30)
[2021-05-11] MEDS ORDERED: AZITHROMYCIN IV 500 MG in IV DEXTROSE 5% 250 ML IV SCH (23:30)
[2021-05-11] MEDS ORDERED: ONDANSETRON 4 MG/2 ML VIAL IV PRN (23:30)
[2021-05-11] MEDS: hydrALAZINE HCL 25 MG TABLET PO PRN (23:45)
[2021-05-12] VITALS (8 sets, daily range): BP systolic 136–177; BP diastolic 58–81
[2021-05-12] MEDS ORDERED: CEFTRIAXONE /D5W 50ML IVPB **ER PYXIS IV ONE (01:00)
[2021-05-12] MEDS ORDERED: DEXTROSE 50% 50 ML DISP.SYRIN IV PRN (01:00)
[2021-05-12] MEDS ORDERED: AZITHROMYCIN 500MG/ D5W 250ML IVPB **ER PYXIS ONLY IV ONE (01:00)
[2021-05-12 01:07] LABS: *BILIRUBIN,URIN NEGATIVE (NEGATIVE); *BLOOD, URINE 1+ (NEGATIVE); *CLARITY,URINE CLEAR (CLEAR); *COLOR,URINE YELLOW (YELLOW); *KETONES,URINE NEGATIVE (NEGATIVE); LEUKOCYTE ESTERASE ,URINE NEGATIVE (NEGATIVE); NITRITE, URINE NEGATIVE (NEGATIVE); UGLUCOSE 2+ (NEGATIVE)
[2021-05-12 01:22] LABS: BACTERIA,URINE NONE SEEN /HPF (NONE SEEN); RBC,URINE 0-3 /HPF (0-3); SQUAMOUS EPITHELIAL CELL,UR MODERATE /HPF (NONE SEEN); WBC,URINE 0-3 /HPF (0-3)
[2021-05-12 06:07] LABS: HEMATOCRIT 23.2 % (31.2-41.9); MEAN CORPUSCULAR HEMOGLOBIN 26.4 uug (24.7-32.8); MEAN CORPUSCULAR VOLUME 81.6 fL (75.5-95.3); PLATELET COUNT (AUTO) 257 K/uL (179-408)
[2021-05-12 06:28] LABS: CREATININE 1.1 mg/dL (0.6-1.3); MAGNESIUM 2.3 mg/dL (1.8-2.4); POTASSIUM 3.5 mmol/L (3.5-5.1)
[2021-05-12] MEDS: BLOOD SUGAR DIAGNOSTIC 1 EACH STRIP VI SCH ×4 (06:29→20:49)
[2021-05-12] MEDS: PANTOPRAZOLE SODIUM 40 MG TABLET.DR PO SCH (06:29)
[2021-05-12 07:03] LABS: THYROID STIMULATING HORMONE 0.762 mIU/mL (0.358-3.740)
[2021-05-12] MEDS: DEXAMETHASONE SOD PHOSPHATE 4 MG INJ IV SCH (08:00)
--- NOTE | 2021-05-12 08:00 | NUR ---
Awake, alert, oriented x 4, anxious, took off non rebreathing mask with O2 sat of 77%. Placed back on the NRB at 15L with O2 sat of 91-95%. Sponge bath given. Repositioned comfortably in bed and breakfast set up.
[2021-05-12] MEDS: INSULIN REGULAR, HUMAN 300 UNIT/3 ML VIAL SQ PRN ×4 (08:02→20:51)
--- NOTE | 2021-05-12 09:30 | NUR ---
Patient on high back rest, calmer O2 sat titrated to 3L/NC when eating breakfast with O2 sat of 97%, maintained.
--- NOTE | 2021-05-12 12:00 | NUR ---
O2 sat 87% on 3L/NC, increased to 6L Humidified NC with O2 sat of 90-92%. BG 311, insulin sliding scale given as ordered. Dr. Hdz informed of consistent elevated BG, with orders for Lantus.
[2021-05-12] MEDS ORDERED: IV D5/ 0.9% NACL 1,000 ML IV PRN (12:15)
[2021-05-12] MEDS ORDERED: SWABABLE VALVE TRANSFER SET EA MC ONE (13:30)
[2021-05-12] MEDS ORDERED: IOHEXOL 350 100 ML INFUS..BTL ONE (13:31)
[2021-05-12] MEDS ORDERED: IV NORMAL SALINE 0 ML IV ONE (13:31)
[2021-05-12] MEDS ORDERED: CEFEPIME HCL 1 G in IV DEXTROSE 5% 50 ML IV SCH (14:00)
[2021-05-12] MEDS: CEFEPIME HCL 2 G in IV DEXTROSE 5% 100 ML IV SCH (14:16)
[2021-05-12] MEDS ORDERED: REMDESIVIR (CHARGED) 200 MG in IV NORMAL SALINE 210 ML IV ONE (15:00)
--- NOTE | 2021-05-12 16:00 | NUR ---
For CTA Chest, transported via bed but not yet done, due to elevator failure. Remdesivir dose started as ordered, monitored per protocol.
--- NOTE | 2021-05-12 19:00 | NUR ---
CTA chest not done. Transferred to bed. repositioned comfortably. Noted SOB on exertion. O2 at 6L/NC with O2 sat of 86-88%. Placed back on NRB at 15L with O2 sat of 92-94%. Endorsed for further care.
--- NOTE | 2021-05-12 20:00 | NUR ---
Received pt in bed, awake and verbally responsive, able to understand and communicate in Emirati. Pt on non rebreather mask at 15LPM, saturating 96%, SOB noted on exertion. Repositioned to high leone's position in bed. IV access intact and patent. Denies any pain or discomfort. Safety measures maintained, call light within reach. On isolation precaution.
[2021-05-12] MEDS: IV NS 1000 ML 1,000 ML IV SCH (20:15)
[2021-05-12] MEDS: hydrALAZINE HCL 25 MG TABLET PO PRN (20:23)
--- NOTE | 2021-05-12 20:45 | NUR ---
Radiology called for pt's CT angio but pt is too unstable to go. will continue to monitor.
[2021-05-12] MEDS: INSULIN GLARGINE,HUM 300 UNITS/3 ML CARTRIDGE SQ SCH (20:49)
[2021-05-12] MEDS ORDERED: TOCILIZUMAB 800 MG in IV NORMAL SALINE 60 ML IV ONE (22:00)
--- NOTE | 2021-05-12 22:30 | NUR ---
Tocilizumab 800 mg in IV NS 60 ml not available.
[2021-05-13 00:05] VITALS: BP 161/54
[2021-05-13] MEDS: hydrALAZINE HCL 25 MG TABLET PO PRN ×3 (00:25→18:48)
[2021-05-13] MEDS: CEFEPIME HCL 2 G in IV DEXTROSE 5% 100 ML IV SCH ×2 (01:27→13:43)
[2021-05-13 04:10] VITALS: BP 172/71
[2021-05-13] MEDS ORDERED: CLONIDINE HCL 0.1 MG TABLET PO ONE (04:30)
[2021-05-13] MEDS: PANTOPRAZOLE SODIUM 40 MG TABLET.DR PO SCH (06:20)
[2021-05-13] MEDS: BLOOD SUGAR DIAGNOSTIC 1 EACH STRIP VI SCH ×4 (06:40→20:18)
--- NOTE | 2021-05-13 06:54 | NUR ---
Pt slept intermittently through the night, no signs of acute distress. Assisted in repositioning in bed as needed. Still on non-rebreather mask at 15L. NSR on tele at 68/min. Tolerated medications, IVF infusing well. All needs attended to and met. Safety measures maintained at all times.
[2021-05-13 07:01] LABS: BILIRUBIN,DIRECT 0.3 mg/dL (0.0-0.2); BILIRUBIN,TOTAL 0.5 mg/dL (0.2-1.0); CREATININE 0.9 mg/dL (0.6-1.3); MAGNESIUM 2.4 mg/dL (1.8-2.4); PHOSPHOROUS 2.9 mg/dL (2.5-4.9); POTASSIUM 3.6 mmol/L (3.5-5.1); TOTAL PROTEIN, SERUM 6.4 g/dL (6.4-8.2)
[2021-05-13 08:01] VITALS: BP 186/71
[2021-05-13] MEDS: DEXAMETHASONE SOD PHOSPHATE 4 MG INJ IV SCH (08:17)
[2021-05-13] MEDS: INSULIN REGULAR, HUMAN 300 UNIT/3 ML VIAL SQ PRN ×4 (08:21→20:26)
[2021-05-13] MEDS: IV NS 1000 ML 1,000 ML IV SCH ×2 (08:30→23:05)
[2021-05-13 08:57] LABS: HEMATOCRIT 21.7 % (31.2-41.9); MEAN CORPUSCULAR HEMOGLOBIN 26.5 uug (24.7-32.8); MEAN CORPUSCULAR VOLUME 82.2 fL (75.5-95.3); PLATELET COUNT (AUTO) 285 K/uL (179-408)
--- NOTE | 2021-05-13 10:58 | NUR ---
Patient is alert and oriented x4. She is resting in bed. Noted with SOB and shallow breaths on rest and exertion, saturating mid-80s. This insurance underwriter sales noted patient continued taking non-rebreather mask off. Patient required education about compliance with mask and importance of oxygen therapy. MD ordered high flow oxygen therapy. Patient now on HF oxygen 40 L and 100%, saturating around 95-96%. Patient on tele monitor, SR. IV fluids infusing as ordered, patient tolerating fluids well. Patient compliant with prescribed medication, no adverse reaction noted. Call light within reach. Bed is in low and locked position. Patient utilizes her son as her main care program resident.
[2021-05-13 12:00] VITALS: BP 162/65
--- NOTE | 2021-05-13 12:22 | NUR ---
Patient tolerating high flow oxygen 40 L well. sitting up in bed. respirations are even and unlabored. patient currently eating lunch without SOB or exertion. BS 265. Insulin 6 units administered per sliding scale. Patient educated about diet for diabetic management.
[2021-05-13] MEDS: REMDESIVIR (CHARGED) 100 MG in IV NORMAL SALINE 100 ML IV SCH (14:49)
[2021-05-13 16:00] VITALS: BP 180/74
--- NOTE | 2021-05-13 17:57 | NUR ---
MD Dr. Hdz notified about Hg value of 7.0. Verbal orders given for a blood transfusion of 1 unit of PRBCs. Orders placed.
[2021-05-13] MEDS ORDERED: methylPREDNISolone SOD SUCC 40 MG/ML VIAL IV ONE (19:30)
[2021-05-13] MEDS ORDERED: TOCILIZUMAB 600 MG in IV NORMAL SALINE 70 ML IV ONE (19:30)
[2021-05-13] MEDS ORDERED: ACETAMINOPHEN 650 MG/20.3 ML LIQUID UDC NG ONE (19:30)
[2021-05-13] MEDS ORDERED: diphenhydrAMINE 50 MG/1 ML VIAL IV ONE (19:30)
[2021-05-13 20:00] VITALS: BP 191/81
[2021-05-13] MEDS: INSULIN GLARGINE,HUM 300 UNITS/3 ML CARTRIDGE SQ SCH (20:27)
--- NOTE | 2021-05-13 20:55 | NUR ---
Patient awake alert and able to make needs known.Patient on the phone taking to her son. HOB elevated with high flow oxygen at 40LPM via NC 100 %.Denies pain .No s/s of distress noted.Iv on right hand 20 g patent and intact with IVF running well.Administered ACtemra Iv as ordered . Pre-medicated with tylenol ,benadryl and solu-medrol.Patient tolerated well.No a/r noted. Call light with in reach. Proper PPe strictly observed for covid.Will continue to monitor.
[2021-05-14] VITALS (21 sets, daily range): BP systolic 114–220; BP diastolic 66–120
--- NOTE | 2021-05-14 02:00 | NUR ---
Patient awake .Blood transfusion started. V/s 180/97 ,98,18,95% in high flow.Afebrile.Patient denies pain .Hydralazine 25 mg given .Will continue to monitor.
[2021-05-14] MEDS: hydrALAZINE HCL 25 MG TABLET PO PRN (02:14)
[2021-05-14] MEDS: CEFEPIME HCL 2 G in IV DEXTROSE 5% 100 ML IV SCH ×2 (05:27→16:19)
--- NOTE | 2021-05-14 05:32 | NUR ---
Blood transfusion completed.No a/r noted. Patient's BP has been > 160/.90.Latest BP 188/89,96 o2 sat ,18,79.98.3.Patient denies any unusual changes. No c/o pain. Gabriella Hussein notified with new order received noted and carried out.
[2021-05-14] MEDS ORDERED: LABETALOL HCL 100 MG/20 ML VIAL IV ONE (06:00)
[2021-05-14] MEDS: PANTOPRAZOLE SODIUM 40 MG TABLET.DR PO SCH (06:00)
[2021-05-14] MEDS ORDERED: LABETALOL HCL 100 MG/20 ML VIAL ONE (06:38)
[2021-05-14] MEDS: BLOOD SUGAR DIAGNOSTIC 1 EACH STRIP VI SCH ×4 (07:02→21:13)
[2021-05-14 07:24] LABS: HEMATOCRIT 28.3 % (31.2-41.9); MEAN CORPUSCULAR HEMOGLOBIN 27.2 uug (24.7-32.8); MEAN CORPUSCULAR VOLUME 81.7 fL (75.5-95.3); PLATELET COUNT (AUTO) 292 K/uL (179-408)
--- NOTE | 2021-05-14 07:30 | NUR ---
Received on bed, awake and alert. On hi flow O2 40 lpm spo2 noted 92% at rest but o2 sat decreased to 89-90% when talking on the phone and noted a little short of breath. Iv hydration is ongoing and tolerated. Patient denies pain. Bed is low and locked. Call light in reach. Will continue to monitor.
[2021-05-14 07:48] LABS: BILIRUBIN,DIRECT 0.4 mg/dL (0.0-0.2); CREATININE 0.9 mg/dL (0.6-1.3); MAGNESIUM 2.6 mg/dL (1.8-2.4); PHOSPHOROUS 2.9 mg/dL (2.5-4.9); POTASSIUM 3.4 mmol/L (3.5-5.1)
[2021-05-14] MEDS: INSULIN REGULAR, HUMAN 300 UNIT/3 ML VIAL SQ PRN ×4 (07:58→21:15)
[2021-05-14] MEDS: DEXAMETHASONE SOD PHOSPHATE 4 MG INJ IV SCH (08:24)
--- NOTE | 2021-05-14 08:40 | NUR ---
With RT in the room spo2 83% noted patient is mouth breathing. Put on nrb at 15lpm. Patient spo2 increased 93%. Will continue to monitor.
[2021-05-14] MEDS ORDERED: POTASSIUM CHLORIDE 20 MEQ TAB.PRT.SR PO ONE ×2 (09:00→09:15)
[2021-05-14] MEDS: IV NS 1000 ML 1,000 ML IV SCH ×2 (10:22→20:26)
[2021-05-14] MEDS ORDERED: hydrALAZINE HCL 20 MG/1 ML VIAL IV PRN (12:45)
--- NOTE | 2021-05-14 14:03 | NUR ---
Patient back on high flow 40lpm via nc. No resp distress noted. spo2 noted 91%.
[2021-05-14] MEDS: REMDESIVIR (CHARGED) 100 MG in IV NORMAL SALINE 100 ML IV SCH (15:18)
--- NOTE | 2021-05-14 16:02 | NUR ---
PT IS CURRENTLY ON 40 LPM, 100% FIO2 HIGH FLOW NASAL CANNULA AND 15 LPM NRB MASK TO KEEP SPO2 >90%. PT HAS MODERATE DISTRESS ON EXERTION. CONT. P.OX AT BEDSIDE. WILL CONTINUE TO MONITOR.
--- NOTE | 2021-05-14 16:05 | NUR ---
RT IN THE ROOM. PATIENT PUT ON 15 LPM NRB MASK TO KEEP SPO2 > 90%. RT ALSO SPOKE WITH SON REGARDING PATIENT'S CONDITION.
--- NOTE | 2021-05-14 17:00 | NUR ---
STILL ON 40 LPM 100% FIO2 HIGH FLOW NC AND 15 LPM NRB MASK. DEEP BREATHING EXERCISES DONE WITH PATIENT. SHE WAS RESPONSIVE. SPO2 NOTED 93-95%.
[2021-05-14] MEDS ORDERED: LATANOPROST OPHT DROP 2.5 ML BOTTLE EACHEYE SCH (18:00)
--- NOTE | 2021-05-14 18:20 | NUR ---
Hydralazine IV given. Sinus rhythm on monitor. spo2 96% on high flow 100 lpm 100% nc and 15 lpm nrb mask. will continue to monitor.
--- NOTE | 2021-05-14 18:44 | NUR ---
CHECKED PATIENTS STATUS @9730, TO BE CALLED BY RN WHEN READY
--- NOTE | 2021-05-14 18:45 | NUR ---
BP rechecked noted 186/107 p104 spo2 96%.
--- NOTE | 2021-05-14 19:00 | NUR ---
Patient with increased work of breathing. Spo2 97% on high flow 40 lpm 100% fio2 nc and 15 lpm nrb mask. Abg ordered. Patient remains alert and responsive.
--- NOTE | 2021-05-14 19:13 | NUR ---
Bp rechecked again noted 182/101 p101 spo2 95%.
[2021-05-14 19:20] LABS: ABG BASE EXCESS -2.6 mmol/L; ABG HCO3 18.8 mmol/L; ABG PCO2 22.8 mmHg (35.0-45.0); ABG PH 7.533 (7.350-7.450); ABG PO2 61.7 mmHg (75.0-100.0); ABG SITE RIGHT BRACHIAL; ABG TOTAL HEMOGLOBIN 10.3 G/dL (12.0-16.0); COHb 0.6 % (0.5-1.5); MetHb 0.3 % (0.0-1.5); O2Hb 91.9 % (94.0-97.0)
--- NOTE | 2021-05-14 19:30 | NUR ---
DR. PATRICIA MADE AWARE OF PATIENT'S CONDITION AND RELAYED ABG RESULT. WAITING FOR ORDERS.
--- NOTE | 2021-05-14 19:30 | NUR ---
RECEIVED PATIENT SHORT OF BREATH ON FIO2 100%, 40 LITERS OXYGEN,M 15 LITERS NON REBREATHER SAT 93%-95%, ABG DONE RESULTS WNL, BUT DIFFICULTY BREATHING, NOTIFY DMYTRI CREATIVE WRITING ENGLISH PROFESSOR WITH ORDER TO TRANSFER PATIENT TO ICU FOR CLOSE MONITOR.
--- NOTE | 2021-05-14 19:50 | NUR ---
AME CANSECO CUTTER OUT WITH ORDER TO TRANSFER PATIENT TO CCU.
--- NOTE | 2021-05-14 19:51 | NUR ---
CARE IS ENDORSED TO PARTITION ASSEMBLER.
[2021-05-14] MEDS ORDERED: LABETALOL HCL 100 MG/20 ML VIAL IV PRN (20:00)
--- NOTE | 2021-05-14 20:20 | NUR ---
Received patient from 3rd floor per bed accompanied by RT and RN, on continuous high flow O2 + NC. To CCU4. Patient AA, restless, speaks no Serbian. As per report patient speaks Kiswahili only. Patient on COVID isolation. Assessment done.
--- NOTE | 2021-05-14 20:45 | NUR ---
Spoke to Edmundo MCCLOUD re: patient's condition.
[2021-05-14] MEDS ORDERED: ATORVASTATIN 40 MG TABLET PO SCH (21:00)
--- NOTE | 2021-05-14 21:00 | NUR ---
Patient's daughter Vanessa called. Informed of condition and plan of care. Confirmed full code status.
[2021-05-14] MEDS: INSULIN GLARGINE,HUM 300 UNITS/3 ML CARTRIDGE SQ SCH (21:16)
--- NOTE | 2021-05-14 21:20 | NUR ---
Spoke to Dr. Regalado. Informed of patient's latest ABGs and condition. Patient tachypneic but O2 sat above 94% on high flow O2. Orders received. Patient extremely restless. Monitored closely.
--- NOTE | 2021-05-14 21:30 | NUR ---
Patient remains extremely restless. Ativan order received from Edmundo MCCLOUD. New IV started to RAC by Mikel KAMARA.
[2021-05-14] MEDS ORDERED: LORAZEPAM 2 MG/1 ML VIAL IV PRN (21:45)
--- NOTE | 2021-05-14 22:15 | NUR ---
Patient apneic. compensation and benefits analyst: SB rate 39. Code blue called. Please refer to code blue record for ACLS documentation. Successfully intubated by Dr. Bowen. Patient's son Pipe notified of on going CPR.
--- NOTE | 2021-05-14 22:20 | NUR ---
Edmundo AIRCRAFT INSTRUMENT ENGINEER notified of on going code blue. Also spoke to patient's daughter Vanessa.
--- NOTE | 2021-05-14 22:42 | NUR ---
Resuscitation efforts unsuccessful. Pronounced by Dr. Bowen. Patient's son Pipe here. Dr. Bowen spoke to him. Edmundo MILL REPRESENTATIVE notified of patient's expiration.
--- NOTE | 2021-05-14 23:15 | NUR ---
[facility] notified of patient's ; spoke to Lilibeth. CC#[id number]. Grand daughter at bedside.
--- NOTE | 2021-05-15 00:30 | NUR ---
More family members at bedside. Son Pipe informed of decedent care and process. Grand daughter Wilma also aware.
--- NOTE | 2021-05-15 01:15 | NUR ---
All family left now. Decedent care done.
[2021-05-15] MEDS ORDERED: ATROPINE SULFATE 1 MG/10 ML DISP.SYRIN IV ONE (01:46)
[2021-05-15] MEDS ORDERED: EPINEPHRINE 1:10,000 1 MG/10 ML DISP.SYRIN IV ONE (01:46)
[2021-05-15] MEDS ORDERED: SODIUM BICARBONATE 8.4% 50 MEQ/50 ML DISP.SYRIN IV ONE (01:46)
[2021-05-15] MEDS ORDERED: CALCIUM CHLORIDE 1 GM/10 ML DISP.SYRIN IV ONE (01:46)
[2021-05-15] MEDS ORDERED: TIMOLOL MALEATE XE 0.5% OPHT 5 ML BOTTLE EACHEYE SCH (09:00)
[2021-05-15] MEDS ORDERED: LOSARTAN POTASSIUM 25 MG TABLET PO SCH (09:00)
[2021-05-17 09:06] LABS: CRYPTOCOCCUS AB, SERUM Negative (Negative)
[2021-05-17 19:06] LABS: COCCIDIOIDES CF SERUM Negative (Neg:<1:2)
== END 2021-05-15 01:47 | DRG 177 ==
LOC: ER 18:00 → TELE3 21:27 → CCU 05-14 20:30
PROVIDERS: ADMIT Student in an Organized Health Care Education/Training Program; ATTEND Student in an Organized Health Care Education/Training Program
PROC: XW033E5 Introduction of Remdesivir Anti-infective into Peripheral Vein, Percutaneous Approach, New Technology Group 5 (ICD-10-PCS; principal; 2021-05-12)
PROC: XW033H5 Introduction of Tocilizumab into Peripheral Vein, Percutaneous Approach, New Technology Group 5 (ICD-10-PCS; 2021-05-12)
PROC: 30233N1 Transfusion of Nonautologous Red Blood Cells into Peripheral Vein, Percutaneous Approach (ICD-10-PCS; 2021-05-14)
PROC: 5A12012 Performance of Cardiac Output, Single, Manual (ICD-10-PCS; 2021-05-15)
PROC: 0BH18EZ Insertion of Endotracheal Airway into Trachea, Via Natural or Artificial Opening Endoscopic (ICD-10-PCS; 2021-05-15)
DX: U07.1 COVID-19 (principal); J12.82 Pneumonia due to coronavirus disease 2019; J96.01 Acute respiratory failure with hypoxia; E87.1 Hypo-osmolality and hyponatremia; N17.9 Acute kidney failure, unspecified; K92.2 Gastrointestinal hemorrhage, unspecified; E11.65 Type 2 diabetes mellitus with hyperglycemia; Z79.84 Long term (current) use of oral hypoglycemic drugs; E66.9 Obesity, unspecified; E78.5 Hyperlipidemia, unspecified; I10 Essential (primary) hypertension; J45.909 Unspecified asthma, uncomplicated; M19.90 Unspecified osteoarthritis, unspecified site; K57.90 Diverticulosis of intestine, part unspecified, without perforation or abscess without bleeding; E86.1 Hypovolemia; D64.9 Anemia, unspecified; H40.9 Unspecified glaucoma; E11.9 Type 2 diabetes mellitus without complications; I25.10 Atherosclerotic heart disease of native coronary artery without angina pectoris; Z68.30 Body mass index [BMI] 30.0-30.9, adult; D50.0 Iron deficiency anemia secondary to blood loss (chronic)
CPT/HCPCS: 36415; 36600; 70030-TC; 71045; 83605; 83615; 83735; 84100; 84443; 85025; 85610; 85730; 86140; 86480; 86850; 86900; 86901; 86920; 87040; 87328; 87400; 93005; 94760; A4663; A6209; G0378; J0171; J0360; J0456; J0461; J0692; J0696; J1100; J1200; J1815; J2060; J2920; J3262; J3490; J3590; J7030; J7040; J7050; J7060; P9016; Q9967